=== PATIENT | male | born 1985 | race Caucasian/White ===

== ENCOUNTER 2019-03-24 19:05 | Emergency (ER) | payer OTHER ==
[~2019-03-24] VITALS: Ht 177.8 cm; Wt 86.4 kg
[~2019-03-24 19:05] MED LIST: ADVI200C5 PO; AZAT50TA2 PO; CIPR-249 PO; CIPR500T89 PO; FLAG500T PO; HYOSPOW SL; IBUP-1114 PO; MAPA500T17 PO; MOTR200T44 PO; NORC1TAB7 PO; PENT500C4 PO; PRED-351 PO; PRED20TA PO; PRED5TA PO; SIME40TA PO; TYLE325T5 PO; ZOFR4SOL PO
[2019-03-24] MEDS ORDERED: MORPHINE 2 MG/ML 1ML VIAL (J2270) IV ONE (19:45)
[2019-03-24] MEDS ORDERED: ONDANSETRON 4MG/2ML VIAL (J2405) IV ONE (19:45)
[2019-03-24] MEDS ORDERED: pamprin PO (19:49)
[2019-03-24 20:13] LABS: BASO # 0.1 10^3/uL (0.0-0.2); BASO % 0.3 % (0.0-1.0); EOS # 0.2 10^3/uL (0.0-0.5); EOS % 1.1 % (0.0-3.0); HEMATOCRIT 45.1 % (42.0-52.0); HEMOGLOBIN 14.8 g/dl (13.5-17.5); LYMPH % 13.3 % (24.0-44.0); MEAN CORPUSCULAR HEMOGLOBIN 28.5 pg (27.0-33.0); MEAN CORPUSCULAR HGB CONC 32.8 g/dl (32.0-36.5); MEAN CORPUSCULAR VOLUME 86.9 fl (80.0-96.0); MONO # 1.2 10^3/uL (0.0-0.8); MONO % 7.5 % (0.0-5.0); NEUTROPHILS # 11.8 10^3/uL (1.5-8.5); NEUTROPHILS % 77.4 % (36.0-66.0); PLATELET COUNT, AUTOMATED 330 10^3/uL (150-450); RED BLOOD COUNT 5.19 10^6/uL (4.30-6.10); WHITE BLOOD COUNT 15.2 10^3/uL (4.0-10.0)
[2019-03-24 20:39] LABS: ALBUMIN 3.5 GM/DL (3.2-5.2); ALT/SGPT 24 U/L (12-78); BILIRUBIN,DIRECT < 0.1 MG/DL (0.0-0.2); BILIRUBIN,TOTAL 0.3 MG/DL (0.2-1.0); BLOOD UREA NITROGEN 9 MG/DL (7-18); CALCIUM LEVEL 9.3 MG/DL (8.5-10.1); CARBON DIOXIDE LEVEL 30 MEQ/L (21-32); CHLORIDE LEVEL 105 MEQ/L (98-107); CREATININE FOR GFR 0.88 MG/DL (0.70-1.30); GLOMERULAR FILTRATION RATE > 60.0 (>60); GLUCOSE, FASTING 88 MG/DL (70-100); LIPASE 117 U/L (73-393); POTASSIUM SERUM 4.2 MEQ/L (3.5-5.1); SODIUM LEVEL 138 MEQ/L (136-145); TOTAL PROTEIN 7.6 GM/DL (6.4-8.2)
[2019-03-24] MEDS ORDERED: ISOVUE-370 76% 100ML VIAL (Q9967) As Ordered ONE (20:56)
[2019-03-24] MEDS ORDERED: PRED20TA PO (22:31)
[2019-03-24 22:32] VITALS: BP 126/74
--- NOTE | 2019-03-24 22:39 | REPVR ---
PROCEDURE INFORMATION: Exam: CT Abdomen And Pelvis With Contrast Exam date and time: 03/24/2019 8:59 PM Clinical history: 33 years old, male; Abdominal pain; Generalized; Additional info: Abd pain, PT dx with crohns TECHNIQUE: Imaging protocol: Computed tomography of the abdomen and pelvis with intravenous contrast. Radiation optimization: All CT scans at this facility use at least one of these dose optimization techniques: automated exposure control; mA and/or kV adjustment per patient size (includes targeted exams where dose is matched to clinical indication); or iterative reconstruction. Contrast material: ISOVUE 370; Contrast volume: 100 ml; Contrast route: IV; COMPARISON: CT ABD PELVIS W/O FOL BY WIT 06/05/2015 4:37 PM FINDINGS: Liver: Normal. No mass. Gallbladder and bile ducts: Normal. No calcified stones. No ductal dilation. Pancreas: Normal. No ductal dilation. Spleen: Normal. No splenomegaly. Adrenals: Normal. No mass. Kidneys and ureters: Normal. No hydronephrosis. Stomach and bowel: Moderate amount of fluid is present throughout much of the small bowel with mucosal enhancement and discontinuous areas of bowel wall thickening. Small bowel within the hernia appears mildly thickwalled. Small bowel proximal and distal to the hernia is dilated. Wall thickening is noted in portions of the distal ileum. Changes from previous distal ileal resection are noted. Mild fluid in the cecum. Remainder of the colon is decompressed without other inflammatory changes. Appendix: There has been prior appendectomy. Intraperitoneal space: No pneumoperitoneum or abscess. Vasculature: Unremarkable. No abdominal aortic aneurysm. Lymph nodes: Scattered mildly enlarged mesenteric lymph nodes are noted. Bilateral inguinal adenopathy. Bladder: Unremarkable as visualized. Reproductive: Unremarkable as visualized. Bones/joints: Unremarkable. No acute fracture. Soft tissues: There is a new periumbilical hernia containing a short segment of small bowel. IMPRESSION: 1. Periumbilical hernia containing a short segment of thickwalled small bowel. The hernia does not appear to be obstructive as small bowel proximal and distal to the hernia appears mildly distended with fluid. 2. Discontinuous areas of wall thickening with mucosal enhancement and generalized intraluminal fluid in the mid and distal small bowel suggesting a Crohn's flare. No perforation or abscess. 3. Bilateral inguinal adenopathy. Electronically signed by: True Gonzalez On 03/24/2019 22:38:40 PM
--- NOTE | 2019-03-27 10:59 | ED PDOC ---
Post-Departure Follow-Up dr giron faxed formal report of ct abd/p for fu Elmer Ríos MD Mar 27, 2019 10:59
== END 2019-03-24 22:38 | disposition left against medical advice (07) ==
LOC: M ED 19:05
DX: K50.90 Crohn's disease, unspecified, without complications (principal); K42.9 Umbilical hernia without obstruction or gangrene; F17.210 Nicotine dependence, cigarettes, uncomplicated; Z90.49 Acquired absence of other specified parts of digestive tract; Z98.890 Other specified postprocedural states
CPT/HCPCS: 74177; 80048; 80076; 81001; 83605; 83690; 85025; 96374; 96375; 99284; J2270; J2405; Q9967

== ENCOUNTER 2019-05-24 17:57 | Emergency (ER) | payer OTHER ==
[~2019-05-24] VITALS: Ht 177.8 cm; Wt 79.1 kg
[~2019-05-24 17:57] MED LIST changes: +pamprin PO
[2019-05-24] MEDS ORDERED: NS 1,000 ML IV ONE (18:45)
[2019-05-24 19:47] LABS: BASO # 0.1 10^3/uL (0.0-0.2); BASO % 0.4 % (0.0-1.0); EOS # 0.1 10^3/uL (0.0-0.5); EOS % 0.6 % (0.0-3.0); HEMATOCRIT 47.1 % (42.0-52.0); LYMPH # 2.3 10^3/uL (1.5-5.0); LYMPH % 16.7 % (24.0-44.0); MEAN CORPUSCULAR HEMOGLOBIN 27.8 pg (27.0-33.0); MEAN CORPUSCULAR HGB CONC 31.8 g/dl (32.0-36.5); MEAN CORPUSCULAR VOLUME 87.4 fl (80.0-96.0); MONO # 0.9 10^3/uL (0.0-0.8); MONO % 6.7 % (0.0-5.0); NEUTROPHILS # 10.5 10^3/uL (1.5-8.5); NEUTROPHILS % 75.2 % (36.0-66.0); PLATELET COUNT, AUTOMATED 364 10^3/uL (150-450); RED BLOOD COUNT 5.39 10^6/uL (4.30-6.10)
[2019-05-24] MEDS: GASTROGRAFIN SOLUTION 30ML PO SCH ×2 (19:56→20:16)
[2019-05-24 20:24] LABS: ALBUMIN 3.5 GM/DL (3.2-5.2); ALT/SGPT 31 U/L (12-78); BILIRUBIN,DIRECT 0.1 MG/DL (0.0-0.2); BILIRUBIN,TOTAL 0.3 MG/DL (0.2-1.0); BLOOD UREA NITROGEN 8 MG/DL (7-18); CALCIUM LEVEL 9.7 MG/DL (8.5-10.1); CARBON DIOXIDE LEVEL 28 MEQ/L (21-32); CHLORIDE LEVEL 103 MEQ/L (98-107); CREATININE FOR GFR 1.01 MG/DL (0.70-1.30); GLOMERULAR FILTRATION RATE > 60.0 (>60); GLUCOSE, FASTING 87 MG/DL (70-100); LIPASE 101 U/L (73-393); POTASSIUM SERUM 4.7 MEQ/L (3.5-5.1); SODIUM LEVEL 138 MEQ/L (136-145); TOTAL PROTEIN 8.1 GM/DL (6.4-8.2)
[2019-05-24 20:43] LABS: C REACTIVE PROTEIN QUANTITATIV 4.92 MG/DL (0.00-0.30)
[2019-05-24] MEDS ORDERED: ISOVUE-370 76% 100ML VIAL (Q9967) As Ordered ONE (20:53)
[2019-05-24 21:15] LABS: ERYTHROCYTE SEDIMENTATION RATE 18 mm/hr (0-15)
--- NOTE | 2019-05-24 22:10 | REPVR ---
PROCEDURE INFORMATION: Exam: CT Abdomen And Pelvis With Contrast Exam date and time: 05/24/2019 9:07 PM Age: 33 years old Clinical indication: Abdominal pain; Localized; Right lower quadrant (rlq); Additional info: Hernia, rlq pain, llq ttp h/o crohns TECHNIQUE: Imaging protocol: Computed tomography of the abdomen and pelvis with intravenous contrast. Radiation optimization: All CT scans at this facility use at least one of these dose optimization techniques: automated exposure control; mA and/or kV adjustment per patient size (includes targeted exams where dose is matched to clinical indication); or iterative reconstruction. Contrast material: ISOVUE 370; Contrast volume: 100 ml; Contrast route: IV; Other contrast: Route: Oral, Material: GASTROGRAFIN; COMPARISON: CT ABD/PEL W/IV CONTRAST ONLY 03/24/2019 8:57 PM FINDINGS: Lungs: Minimal bilateral lower lobe dependent atelectasis. Liver: Normal. No mass. Gallbladder and bile ducts: Normal. No calcified stones. No ductal dilation. Pancreas: Normal. No ductal dilation. Spleen: Normal. No splenomegaly. Adrenals: Normal. No mass. Kidneys and ureters: Small nonobstructing bilateral calculi. Stomach and bowel: Partial proximal colonic and small bowel resection with ileocolic anastomosis in the mid ascending colon. The remaining distal small bowel demonstrates wall thickening and slight surrounding induration consistent with distal ileitis. Resolution of small bowel obstruction or distention since the prior study. Appendix: No evidence of appendicitis. Intraperitoneal space: Unremarkable. No free air. No significant fluid collection. Vasculature: Unremarkable. No abdominal aortic aneurysm. Lymph nodes: Borderline central mesenteric nodes and mildly prominent right lower quadrant mesenteric nodes which are likely reactive and similar to the prior study. Mild bilateral inguinal adenopathy with nodes measuring up to 3.2 x 2.4 x 1.4 cm on the left and slightly smaller nodes on the right. Bladder: Unremarkable as visualized. Reproductive: Unremarkable as visualized. Bones/joints: Unremarkable. No acute fracture. Soft tissues: Small right periumbilical hernia containing a short segment of small bowel with no strangulation or obstruction. IMPRESSION: 1. Resolution of small bowel obstructive changes since 03/24/2019. 2. Status post proximal colectomy and small bowel resection with ileocolic anastomosis which is similar. The remaining distal ileum demonstrates wall thickening and surrounding induration consistent with distal ileitis in Crohn's disease which is similar to slightly increased since the prior study. There is borderline distention of a short segment of small bowel just proximal to the ileitis. 3. Right periumbilical hernia containing a short segment of small bowel with no strangulation or obstruction and is similar. 4. Small nonobstructing bilateral renal calculi. 5. Borderline central mesenteric nodes with mildly enlarged right lower quadrant mesenteric nodes which are similar to the prior study and likely reactive. There is mild bilateral inguinal adenopathy which is similar. Electronically signed by: Leon Negron On 05/24/2019 22:10:20 PM
[2019-05-24] MEDS ORDERED: UCER9TAB PO (23:51)
[2019-05-25 00:04] VITALS: BP 133/69
--- NOTE | 2019-05-25 08:52 | ED PDOC ---
Post-Departure Follow-Up [facility], dr haq, dr fernandez faxed formal report of ct abd/p for fu Elmer Hein MD May 25, 2019 08:52
== END 2019-05-25 00:05 | disposition home or self-care (01) ==
LOC: M ED 17:57
DX: K50.90 Crohn's disease, unspecified, without complications (principal); N20.1 Calculus of ureter; K42.9 Umbilical hernia without obstruction or gangrene; I88.0 Nonspecific mesenteric lymphadenitis; Z90.49 Acquired absence of other specified parts of digestive tract; F17.200 Nicotine dependence, unspecified, uncomplicated; N20.0 Calculus of kidney
CPT/HCPCS: 36415; 74177; 80048; 80076; 81001; 83690; 85025; 85652; 86140; 96360; 99284; Q9963; Q9967

== ENCOUNTER → 2019-06-19 | Outpatient (CLI) | payer OTHER ==
[~2019-06-19] MED LIST changes: +UCER9TAB PO
[2019-06-19 13:31] LABS: BASO # 0.1 10^3/uL (0.0-0.2); BASO % 0.3 % (0.0-1.0); EOS % 0.1 % (0.0-3.0); HEMATOCRIT 45.7 % (42.0-52.0); HEMOGLOBIN 14.5 g/dl (13.5-17.5); LYMPH # 2.3 10^3/uL (1.5-5.0); LYMPH % 12.9 % (24.0-44.0); MEAN CORPUSCULAR HEMOGLOBIN 27.5 pg (27.0-33.0); MEAN CORPUSCULAR HGB CONC 31.7 g/dl (32.0-36.5); MEAN CORPUSCULAR VOLUME 86.7 fl (80.0-96.0); MONO # 0.7 10^3/uL (0.0-0.8); MONO % 3.7 % (0.0-5.0); NEUTROPHILS # 14.6 10^3/uL (1.5-8.5); NEUTROPHILS % 82.4 % (36.0-66.0); PLATELET COUNT, AUTOMATED 363 10^3/uL (150-450); RED BLOOD COUNT 5.27 10^6/uL (4.30-6.10); WHITE BLOOD COUNT 17.7 10^3/uL (4.0-10.0)
[2019-06-19 14:01] LABS: ALBUMIN 3.4 GM/DL (3.2-5.2); ALT/SGPT 31 U/L (12-78); BILIRUBIN,DIRECT 0.1 MG/DL (0.0-0.2); BILIRUBIN,TOTAL 0.2 MG/DL (0.2-1.0); BLOOD UREA NITROGEN 12 MG/DL (7-18); C REACTIVE PROTEIN QUANTITATIV 0.36 MG/DL (0.00-0.30); CREATININE FOR GFR 0.76 MG/DL (0.70-1.30); ERYTHROCYTE SEDIMENTATION RATE 16 mm/hr (0-15); GLOMERULAR FILTRATION RATE > 60.0 (>60); TOTAL PROTEIN 7.3 GM/DL (6.4-8.2)
[2019-06-20 10:30] LABS: HEPATITIS B SURFACE ANTIBODY POSITIVE (POSITIVE)
[2019-06-20 10:41] LABS: HEPATITIS B SURFACE ANTIGEN NEGATIVE (NEGATIVE)
[2019-06-20 11:10] LABS: HEPATITIS C VIRUS ABY INDEX < 0.0 INDEX (<0.8)
== END ==
LOC: M LAB 12:25
PROVIDERS: ATTEND Internal Medicine Gastroenterology
DX: K50.00 Crohn's disease of small intestine without complications (principal)

== ENCOUNTER 2019-07-09 07:48 | Day surgery (SDC) | payer OTHER ==
[~2019-07-09] VITALS: Ht 172.7 cm; Wt 81.2 kg
[~2019-07-09 07:48] MED LIST changes: +METR-265 PO; +NS 1,000 ML IV ONE; +PRED10PA2 PO
[2019-07-09] MEDS ORDERED: LIDOCAINE 2% INJ 100 MG/5 ML SDV (FOR ANES.) As Ordered ONE (08:36)
[2019-07-09] MEDS ORDERED: propofoL 200 MG/20 ML VIAL As Ordered ONE (08:36)
[2019-07-09 09:15] VITALS: BP 110/62
--- NOTE | 2019-07-09 09:37 | ROOR ---
Patient Name: David Taylor Procedure Date: 07/09/2019 8:28 AM Date of : 1985 Age: 33 Room: [facility] Gender: Male Note Status: Finalized Procedure: Colonoscopy Indications: Disease activity assessment of Crohn's disease of the small bowel and colon Providers: Robbie Hung MD Referring MD: Herbert Goodrich Md Requesting Provider: Medicines: Monitored Anesthesia Care Complications: No immediate complications. Procedure: Pre-Anesthesia Assessment: - Prior to the procedure, a History and Physical was performed, and patient medications and allergies were reviewed. The patient is competent. The risks and benefits of the procedure and the sedation options and risks were discussed with the patient. All questions were answered and informed consent was obtained. Patient identification and proposed procedure were verified by the physician, the nurse and the anesthesiologist in the procedure room. Mental Status Examination: alert and oriented. Airway Examination: normal oropharyngeal airway and neck mobility. Respiratory Examination: clear to auscultation. Prophylactic Antibiotics: The patient does not require prophylactic antibiotics. Prior Anticoagulants: The patient has taken no previous anticoagulant or antiplatelet agents. ASA Grade Assessment: II - A patient with mild systemic disease. After reviewing the risks and benefits, the patient was deemed in satisfactory condition to undergo the procedure. The anesthesia plan was to use monitored anesthesia care (MAC). Immediately prior to administration of medications, the patient was re-assessed for adequacy to receive sedatives. The heart rate, respiratory rate, oxygen saturations, blood pressure, adequacy of pulmonary ventilation, and response to care were monitored throughout the procedure. The physical status of the patient was re-assessed after the procedure. The Colonoscope was introduced through the anus and advanced to the ileocolonic anastomosis. The colonoscopy was performed without difficulty. The patient tolerated the procedure well. The quality of the bowel preparation was good. The terminal ileum and the rectum were photographed. Scope insertion time was 3 minutes. Scope withdrawal time was 9 minutes. The total duration of the procedure was 12 minutes. Findings: The perianal exam findings include a perianal rash and perianal abscess. The joyce-terminal ileum contained multiple ten mm ulcers. No bleeding was present. Biopsies were taken with a cold forceps for histology. Verification of patient identification for the specimen was done by the physician and nurse using the patient's name, date and medical record number. Estimated blood loss was minimal. There was evidence of a prior functional end-to-end ileo-colonic anastomosis in the ascending colon. This was stenosed ( regular colonoscopy could not pass) and was characterized by congestion, inflammation and ulceration. The anastomosis could not be traversed. Patchy moderate inflammation characterized by altered vascularity, erosions, erythema and granularity was found from rectum to ascending colon. Biopsies were taken with a cold forceps for histology. Non-bleeding external and internal hemorrhoids were found during retroflexion. The hemorrhoids were small. No additional abnormalities were found on retroflexion. Impression: - Perianal rash and perianal abscess found on perianal exam. - Multiple ulcers in the joyce-terminal ileum. Biopsied. - Stenosed ( regular colonoscopy could not pass) functional end-to-end ileo-colonic anastomosis, characterized by congestion, inflammation and ulceration. - Patchy moderate inflammation was found from rectum to ascending colon secondary to colitis. Biopsied. - Non-bleeding external and internal hemorrhoids. No additional abnormalities were found on retroflexion. Recommendation: - Patient has a contact number available for emergencies. The signs and symptoms of potential delayed complications were discussed with the patient. Return to normal activities tomorrow. Written discharge instructions were provided to the patient. - High fiber diet. - Continue present medications. - Taper prednisone. - Cipro (ciprofloxacin) 500 mg PO BID for 10 days. - Flagyl (metronidazole) 500 mg PO TID for 2 weeks. - Refer to a surgeon as previously scheduled to reassess for abscess drainage. - Return to GI clinic in [facility] (address [address], [address], [place], [facility]) in 4 -- 6 weeks. Please call GI clinic @ [phone] for apppointment date and time. - Return to primary care physician. Robbie Hung MD Robbie Hung MD 07/09/2019 9:36:56 AM Electronically signed by Robbie Hung MD Number of Addenda: 0 Note Initiated On: 07/09/2019 8:28 AM Estimated Blood Loss: Estimated blood loss was minimal.
== END 2019-07-09 09:47 | disposition home or self-care (01) ==
LOC: M OPP 07:48
PROVIDERS: ATTEND Internal Medicine Gastroenterology
DX: K50.80 Crohn's disease of both small and large intestine without complications (principal); R21 Rash and other nonspecific skin eruption; K63.3 Ulcer of intestine; K61.0 Anal abscess; Z98.0 Intestinal bypass and anastomosis status; K52.9 Noninfective gastroenteritis and colitis, unspecified; F17.218 Nicotine dependence, cigarettes, with other nicotine-induced disorders; Z88.8 Allergy status to other drugs, medicaments and biological substances; Z79.899 Other long term (current) drug therapy; Z79.52 Long term (current) use of systemic steroids; G43.909 Migraine, unspecified, not intractable, without status migrainosus

== ENCOUNTER 2019-07-16 07:47 | Outpatient (CLI) | payer OTHER ==
[~2019-07-16] VITALS: Ht 172.7 cm; Wt 81.2 kg
[~2019-07-16 07:47] MED LIST changes: -NS 1,000 ML IV ONE
[2019-07-16] MEDS ORDERED: VEDOLIZUMAB 300 MG in NS 250 ML IV ONE (08:00)
[2019-07-16] MEDS ORDERED: CIPR5SUS PO (08:07)
[2019-07-16 08:16] VITALS: BP 113/76
[2019-07-16 09:00] VITALS: BP 117/70
[2019-07-16 09:22] VITALS: BP 117/74
== END 2019-07-16 09:20 | disposition home or self-care (01) ==
LOC: M INFU 07:47
PROVIDERS: ATTEND Internal Medicine Gastroenterology
DX: K50.90 Crohn's disease, unspecified, without complications (principal); Z88.8 Allergy status to other drugs, medicaments and biological substances
CPT/HCPCS: 96365; J3380

== ENCOUNTER 2019-07-30 07:57 | Outpatient (CLI) | payer OTHER ==
[~2019-07-30] VITALS: Ht 172.7 cm; Wt 81.2 kg
[~2019-07-30 07:57] MED LIST changes: +CIPR5SUS PO
[2019-07-30 08:23] VITALS: BP 124/74
[2019-07-30] MEDS ORDERED: VEDOLIZUMAB 300 MG in NS 250 ML IV ONE (09:00)
[2019-07-30 09:45] VITALS: BP 116/65
== END 2019-07-30 09:45 | disposition home or self-care (01) ==
LOC: M INFU 07:57
PROVIDERS: ATTEND Internal Medicine Gastroenterology
DX: K50.90 Crohn's disease, unspecified, without complications (principal); Z88.8 Allergy status to other drugs, medicaments and biological substances
CPT/HCPCS: 96365; J3380

== ENCOUNTER 2019-08-27 08:33 | Outpatient (CLI) | payer OTHER ==
[~2019-08-27] VITALS: Ht 172.7 cm; Wt 81.2 kg
[2019-08-27 08:40] VITALS: BP 113/75
[2019-08-27] MEDS ORDERED: VEDOLIZUMAB 300 MG in NS 250 ML IV ONE (09:00)
[2019-08-27 10:00] VITALS: BP 107/60
== END 2019-08-27 10:00 | disposition home or self-care (01) ==
LOC: M INFU 08:33
PROVIDERS: ATTEND Internal Medicine Gastroenterology
DX: K50.90 Crohn's disease, unspecified, without complications (principal); Z88.8 Allergy status to other drugs, medicaments and biological substances
CPT/HCPCS: 96365; 96366; J3380

== ENCOUNTER → 2019-09-20 | Outpatient (CLI) | payer OTHER ==
[2019-09-20 12:47] LABS: BASO # 0.1 10^3/uL (0.0-0.2); BASO % 0.5 % (0.0-1.0); EOS # 0.2 10^3/uL (0.0-0.5); EOS % 2.1 % (0.0-3.0); HEMATOCRIT 50.7 % (42.0-52.0); HEMOGLOBIN 16.3 g/dl (13.5-17.5); LYMPH # 2.7 10^3/uL (1.5-5.0); LYMPH % 28.7 % (24.0-44.0); MEAN CORPUSCULAR HEMOGLOBIN 28.5 pg (27.0-33.0); MEAN CORPUSCULAR HGB CONC 32.1 g/dl (32.0-36.5); MEAN CORPUSCULAR VOLUME 88.6 fl (80.0-96.0); MONO # 0.8 10^3/uL (0.0-0.8); NEUTROPHILS # 5.7 10^3/uL (1.5-8.5); NEUTROPHILS % 60.4 % (36.0-66.0); PLATELET COUNT, AUTOMATED 320 10^3/uL (150-450); RED BLOOD COUNT 5.72 10^6/uL (4.30-6.10); WHITE BLOOD COUNT 9.5 10^3/uL (4.0-10.0)
[2019-09-20 13:23] LABS: ALBUMIN 3.5 GM/DL (3.2-5.2); BILIRUBIN,DIRECT 0.1 MG/DL (0.0-0.2); BILIRUBIN,TOTAL 0.5 MG/DL (0.2-1.0); C REACTIVE PROTEIN QUANTITATIV 0.37 MG/DL (0.00-0.30); TOTAL PROTEIN 7.4 GM/DL (6.4-8.2)
[2019-09-20 13:51] LABS: ERYTHROCYTE SEDIMENTATION RATE 4 mm/hr (0-15)
== END ==
LOC: M LAB 12:24
PROVIDERS: ATTEND Internal Medicine Gastroenterology
DX: K50.913 Crohn's disease, unspecified, with fistula (principal); K63.3 Ulcer of intestine

== ENCOUNTER 2019-10-23 08:27 | Outpatient (CLI) | payer OTHER ==
[~2019-10-23] VITALS: Ht 172.7 cm; Wt 81.2 kg
[2019-10-23 08:38] VITALS: BP 120/75
[2019-10-23] MEDS ORDERED: VEDOLIZUMAB 300 MG in NS 250 ML IV ONE (08:45)
[2019-10-23 09:35] VITALS: BP 107/60
== END 2019-10-23 09:35 | disposition home or self-care (01) ==
LOC: M INFU 08:27
PROVIDERS: ATTEND Internal Medicine Gastroenterology
DX: K50.90 Crohn's disease, unspecified, without complications (principal)
CPT/HCPCS: 96365; J3380

== ENCOUNTER 2019-12-17 08:41 | Outpatient (CLI) | payer OTHER ==
[~2019-12-17] VITALS: Ht 172.7 cm; Wt 81.2 kg
[2019-12-17 08:45] VITALS: BP 117/61
[2019-12-17] MEDS ORDERED: ENTY1INJ IV (08:58)
[2019-12-17] MEDS ORDERED: VEDOLIZUMAB 300 MG in NS 250 ML IV ONE (09:00)
[2019-12-17 09:14] VITALS: BP 117/61
[2019-12-17 09:50] VITALS: BP 106/60
[2019-12-17 09:58] VITALS: BP 108/60
== END 2019-12-17 10:00 | disposition home or self-care (01) ==
LOC: M INFU 08:41
PROVIDERS: ATTEND Internal Medicine Gastroenterology
DX: K50.90 Crohn's disease, unspecified, without complications (principal)
CPT/HCPCS: 96365; J3380

== ENCOUNTER 2020-02-11 08:47 | Outpatient (CLI) | payer OTHER ==
[~2020-02-11] VITALS: Ht 172.7 cm; Wt 81.2 kg
[~2020-02-11 08:47] MED LIST changes: +ENTY1INJ IV; +VEDOLIZUMAB 300 MG in NS 250 ML IV ONE
[2020-02-11 08:55] VITALS: BP 117/75
[2020-02-11 10:00] VITALS: BP 112/71
== END 2020-02-11 10:00 | disposition home or self-care (01) ==
LOC: M INFU 08:47
PROVIDERS: ATTEND Internal Medicine Gastroenterology
DX: K50.90 Crohn's disease, unspecified, without complications (principal)
CPT/HCPCS: 96365; J3380

== ENCOUNTER 2020-04-07 08:37 | Outpatient (CLI) | payer OTHER ==
[~2020-04-07] VITALS: Ht 172.7 cm; Wt 81.2 kg
[2020-04-07 08:51] VITALS: BP 136/84
[2020-04-07 09:44] VITALS: BP 135/73
== END 2020-04-07 09:45 | disposition home or self-care (01) ==
LOC: M INFU 08:37
PROVIDERS: ATTEND Internal Medicine Gastroenterology
DX: K50.90 Crohn's disease, unspecified, without complications (principal); Z88.8 Allergy status to other drugs, medicaments and biological substances
CPT/HCPCS: 96365; J3380

== ENCOUNTER 2020-06-02 08:32 | Outpatient (CLI) | payer OTHER ==
[~2020-06-02] VITALS: Ht 172.7 cm; Wt 81.2 kg
[2020-06-02 08:44] VITALS: BP 120/71
[2020-06-02 10:35] VITALS: BP 101/66
== END 2020-06-02 10:35 | disposition home or self-care (01) ==
LOC: M INFU 08:32
PROVIDERS: ATTEND Internal Medicine Gastroenterology
DX: K50.90 Crohn's disease, unspecified, without complications (principal); Z88.8 Allergy status to other drugs, medicaments and biological substances
CPT/HCPCS: 96365; J3380

== ENCOUNTER 2020-07-28 08:25 | Outpatient (CLI) | payer OTHER ==
[~2020-07-28] VITALS: Ht 172.7 cm; Wt 81.2 kg
[~2020-07-28 08:25] MED LIST changes: -VEDOLIZUMAB 300 MG in NS 250 ML IV ONE
[2020-07-28 08:30] VITALS: BP 128/74
[2020-07-28] MEDS ORDERED: VEDOLIZUMAB 300 MG in NS 250 ML IV ONE (08:30)
[2020-07-28 09:50] VITALS: BP 126/63
== END 2020-07-28 09:50 | disposition home or self-care (01) ==
LOC: M INFU 08:25
PROVIDERS: ATTEND Internal Medicine Gastroenterology
DX: K50.90 Crohn's disease, unspecified, without complications (principal); Z88.8 Allergy status to other drugs, medicaments and biological substances
CPT/HCPCS: 96365; J3380

== ENCOUNTER 2020-09-22 08:22 | Outpatient (CLI) | payer OTHER ==
[~2020-09-22] VITALS: Ht 172.7 cm; Wt 81.2 kg
[2020-09-22] MEDS ORDERED: VEDOLIZUMAB 300 MG in NS 250 ML IV ONE (08:30)
[2020-09-22 09:11] VITALS: BP 137/81
[2020-09-22 09:52] VITALS: BP 119/76
== END 2020-09-22 10:00 | disposition home or self-care (01) ==
LOC: M INFU 08:22
PROVIDERS: ATTEND Internal Medicine Gastroenterology
DX: K50.90 Crohn's disease, unspecified, without complications (principal)
CPT/HCPCS: 96365; J3380

== ENCOUNTER → 2020-10-01 | Outpatient (CLI) | payer OTHER | LOC: M LABSMTC 09:52 | PROVIDERS: ATTEND Anesthesiology | DX: Z01.812 Encounter for preprocedural laboratory examination (principal); Z20.822 Contact with and (suspected) exposure to COVID-19 ==

== ENCOUNTER 2020-10-06 07:46 | Day surgery (SDC) | payer OTHER ==
[~2020-10-06] VITALS: Ht 177.8 cm; Wt 89.3 kg
[~2020-10-06 07:46] MED LIST changes: +NS 1,000 ML IV ONE
[2020-10-06] MEDS ORDERED: LIDOCAINE 2% 100MG/5ML SDV (FOR ANES.) As Ordered ONE (09:07)
[2020-10-06] MEDS ORDERED: propofoL 200 MG/20 ML VIAL As Ordered ONE (09:07)
--- NOTE | 2020-10-06 09:42 | ROOR ---
Patient Name: David Taylor Procedure Date: 10/06/2020 8:58 AM Date of : 1985 Age: 34 Room: [facility] Gender: Male Note Status: Finalized Procedure: Colonoscopy Indications: Disease activity assessment of Crohn's disease of the small bowel and colon, Assess therapeutic response to therapy of Crohn's disease of the small bowel and colon Providers: Robbie Hung MD Referring MD: Herbert Goodrich MD Requesting Provider: Medicines: Monitored Anesthesia Care Complications: No immediate complications. Procedure: Pre-Anesthesia Assessment: - Prior to the procedure, a History and Physical was performed, and patient medications and allergies were reviewed. The patient is competent. The risks and benefits of the procedure and the sedation options and risks were discussed with the patient. All questions were answered and informed consent was obtained. Patient identification and proposed procedure were verified by the physician, the nurse and the anesthesiologist in the procedure room. Mental Status Examination: alert and oriented. Airway Examination: normal oropharyngeal airway and neck mobility. Respiratory Examination: clear to auscultation. CV Examination: normal. Prophylactic Antibiotics: The patient does not require prophylactic antibiotics. Prior Anticoagulants: The patient has taken no previous anticoagulant or antiplatelet agents. ASA Grade Assessment: II - A patient with mild systemic disease. After reviewing the risks and benefits, the patient was deemed in satisfactory condition to undergo the procedure. The anesthesia plan was to use monitored anesthesia care (MAC). Immediately prior to administration of medications, the patient was re-assessed for adequacy to receive sedatives. The heart rate, respiratory rate, oxygen saturations, blood pressure, adequacy of pulmonary ventilation, and response to care were monitored throughout the procedure. The physical status of the patient was re-assessed after the procedure. The Colonoscope was introduced through the anus and advanced to 15 cm into the ileum. The colonoscopy was performed without difficulty. The patient tolerated the procedure well. The quality of the bowel preparation was good. The terminal ileum and the rectum were photographed. Scope insertion time was 2 minutes. Scope withdrawal time was 8 minutes. The total duration of the procedure was 10 minutes. Findings: -- Noted multiple healing abscesses in perianal area. One abscess in the left buttock is noted to express pus on pressure. No fistulous tract identified in the rectum. Scattered inflammation, graded as Rutgeerts Score i1 (five or fewer aphthous lesions) and characterized by congestion (edema) and erythema was found at 15 cm from the Ileocolonic Anastomosis. Biopsies were taken with a cold forceps for histology. Verification of patient identification for the specimen was done by the physician and nurse using the patient's name, date and medical record number. Estimated blood loss was minimal. There was evidence of a prior functional end-to-end ileo-colonic anastomosis in the ascending colon. This was patent and was characterized by healthy appearing mucosa. The anastomosis was traversed. A healed ulcer was found in the recto-sigmoid colon and in the ascending colon. The scar tissue was healthy in appearance. Normal mucosa was found in the entire colon. Biopsies were taken with a cold forceps for histology. Two sessile polyps were found in the ascending colon. The polyps were 3 to 4 mm in size. These polyps were removed with a cold biopsy forceps. Resection and retrieval were complete. Non-bleeding external and internal hemorrhoids were found during retroflexion. The hemorrhoids were medium-sized. Impression: - Crohn's disease with ileitis. Biopsied. - Patent functional end-to-end ileo-colonic anastomosis, characterized by healthy appearing mucosa. - Scar in the recto-sigmoid colon and in the ascending colon. - Normal mucosa in the entire examined colon. Biopsied. - Two 3 to 4 mm polyps in the ascending colon, removed with a cold biopsy forceps. Resected and retrieved. - Non-bleeding external and internal hemorrhoids. Recommendation: - Patient has a contact number available for emergencies. The signs and symptoms of potential delayed complications were discussed with the patient. Return to normal activities tomorrow. Written discharge instructions were provided to the patient. - High fiber diet. - Continue present medications. - Use Questran at 1 scoop (4 grams) PO daily. - Colace capsule(s) orally 100 mg BID. - Flagyl (metronidazole) 500 mg PO TID for 5 days. - Telephone GI clinic for pathology results in 2 weeks. - Return to GI clinic in [facility] (address [address], [address], [place], [facility]) in 4 -- 6 weeks. Please call GI clinic @ [phone] for apppointment date and time. - Return to primary care physician. Procedure Code(s): --- Professional --- 46020, Colonoscopy, flexible; with biopsy, single or multiple Diagnosis Code(s): --- Professional --- K50.00, Crohn's disease of small intestine without complications Z98.0, Intestinal bypass and anastomosis status K63.89, Other specified diseases of intestine K64.8, Other hemorrhoids K63.5, Polyp of colon K50.80, Crohn's disease of both small and large intestine without complications CPT copyright 2019 [employer]. All rights reserved. The codes documented in this report are preliminary and upon dance artist review may be revised to meet current compliance requirements. Robbie Hung MD Robbie Hung MD 10/06/2020 9:42:00 AM Electronically signed by Robbie Hung MD Number of Addenda: 0 Note Initiated On: 10/06/2020 8:58 AM Estimated Blood Loss: Estimated blood loss was minimal.
[2020-10-06 09:52] VITALS: BP 114/62
== END 2020-10-06 09:55 | disposition home or self-care (01) ==
LOC: M OPP 07:46
PROVIDERS: ATTEND Internal Medicine Gastroenterology
DX: K63.89 Other specified diseases of intestine (principal); Z98.0 Intestinal bypass and anastomosis status; K63.5 Polyp of colon; K64.8 Other hemorrhoids; K50.80 Crohn's disease of both small and large intestine without complications; Z79.899 Other long term (current) drug therapy; Z88.8 Allergy status to other drugs, medicaments and biological substances; F17.210 Nicotine dependence, cigarettes, uncomplicated

== ENCOUNTER 2020-11-17 08:44 | Outpatient (CLI) | payer OTHER ==
[~2020-11-17] VITALS: Ht 172.7 cm; Wt 81.2 kg
[~2020-11-17 08:44] MED LIST changes: -NS 1,000 ML IV ONE; +VEDOLIZUMAB 300 MG in NS 250 ML IV ONE
[2020-11-17 08:48] VITALS: BP 125/86
[2020-11-17 09:45] VITALS: BP 118/70
== END 2020-11-17 09:50 | disposition home or self-care (01) ==
LOC: M INFU 08:44
PROVIDERS: ATTEND Internal Medicine Gastroenterology
DX: K50.90 Crohn's disease, unspecified, without complications (principal)
CPT/HCPCS: 96365; J3380

== ENCOUNTER 2021-01-12 09:11 | Outpatient (CLI) | payer OTHER ==
[~2021-01-12] VITALS: Ht 175.3 cm; Wt 86.3 kg
[2021-01-12 09:15] VITALS: BP 139/88
[2021-01-12 10:20] VITALS: BP 155/95
== END 2021-01-12 10:20 | disposition home or self-care (01) ==
LOC: M INFU 09:11
PROVIDERS: ATTEND Internal Medicine Gastroenterology
DX: K50.90 Crohn's disease, unspecified, without complications (principal)
CPT/HCPCS: 96365; J3380

== ENCOUNTER 2021-03-09 08:32 | Outpatient (CLI) | payer OTHER ==
[~2021-03-09] VITALS: Ht 175.3 cm; Wt 86.3 kg
[2021-03-09] MEDS: VEDOLIZUMAB 300 MG in NS 250 ML IV ONE ×2 (08:20→10:15)
[~2021-03-09 08:32] MED LIST changes: -VEDOLIZUMAB 300 MG in NS 250 ML IV ONE
[2021-03-09 08:53] VITALS: BP 126/79
[2021-03-09] MEDS ORDERED: TUME1CAP PO (09:06)
[2021-03-09] MEDS ORDERED: D3 +TAB PO (09:06)
[2021-03-09 09:55] VITALS: BP 124/68
== END 2021-03-09 10:05 | disposition home or self-care (01) ==
LOC: M INFU 08:32
PROVIDERS: ATTEND Internal Medicine Gastroenterology
DX: K50.90 Crohn's disease, unspecified, without complications (principal); Z88.8 Allergy status to other drugs, medicaments and biological substances
CPT/HCPCS: 96365; J3380

== ENCOUNTER 2021-05-04 08:45 | Outpatient (CLI) | payer OTHER ==
[~2021-05-04] VITALS: Ht 175.3 cm; Wt 84.0 kg
[~2021-05-04 08:45] MED LIST changes: +D3 +TAB PO; +TUME1CAP PO; +VEDOLIZUMAB 300 MG in NS 250 ML IV ONE
[2021-05-04 09:00] VITALS: BP 120/76
[2021-05-04 09:39] VITALS: BP 120/76
[2021-05-04 09:55] VITALS: BP 109/68
== END 2021-05-04 09:55 | disposition home or self-care (01) ==
LOC: M INFU 08:45
PROVIDERS: ATTEND Internal Medicine Gastroenterology
DX: K50.90 Crohn's disease, unspecified, without complications (principal); Z88.8 Allergy status to other drugs, medicaments and biological substances
CPT/HCPCS: 96365; J3380

== ENCOUNTER → 2021-06-22 | Outpatient (CLI) | payer OTHER ==
[~2021-06-22] MED LIST changes: -VEDOLIZUMAB 300 MG in NS 250 ML IV ONE
[2021-06-22 12:28] LABS: BASO % 0.9 % (0.0-1.0); EOS # 0.1 10^3/uL (0.0-0.5); EOS % 1.1 % (0.0-3.0); HEMATOCRIT 48.3 % (42.0-52.0); HEMOGLOBIN 16.1 g/dl (13.5-17.5); LYMPH # 1.7 10^3/uL (1.5-5.0); LYMPH % 38.4 % (24.0-44.0); MEAN CORPUSCULAR HEMOGLOBIN 29.2 pg (27.0-33.0); MEAN CORPUSCULAR HGB CONC 33.3 g/dl (32.0-36.5); MEAN CORPUSCULAR VOLUME 87.5 fl (80.0-96.0); MONO # 0.9 10^3/uL (0.0-0.8); MONO % 20.2 % (2.0-8.0); NEUTROPHILS # 1.8 10^3/uL (1.5-8.5); NEUTROPHILS % 39.2 % (36.0-66.0); PLATELET COUNT, AUTOMATED 202 10^3/uL (150-450); RED BLOOD COUNT 5.52 10^6/uL (4.30-6.10); WHITE BLOOD COUNT 4.5 10^3/uL (4.0-10.0)
[2021-06-22 13:23] LABS: ERYTHROCYTE SEDIMENTATION RATE 4 mm/hr (0-15)
[2021-06-22 13:37] LABS: ALBUMIN 3.6 GM/DL (3.2-5.2); ALT/SGPT 52 U/L (12-78); BILIRUBIN,DIRECT 0.1 MG/DL (0.0-0.2); BILIRUBIN,TOTAL 0.2 MG/DL (0.2-1.0); BLOOD UREA NITROGEN 9 MG/DL (7-18); C REACTIVE PROTEIN QUANTITATIV < 0.30 MG/DL (0.00-0.30); GLOMERULAR FILTRATION RATE > 60.0 (>60); TOTAL PROTEIN 6.9 GM/DL (6.4-8.2)
== END ==
LOC: M LAB 11:23
PROVIDERS: ATTEND Internal Medicine Gastroenterology
DX: K50.80 Crohn's disease of both small and large intestine without complications (principal); L73.2 Hidradenitis suppurativa

== ENCOUNTER → 2021-09-28 | Outpatient (CLI) | payer OTHER ==
[~2021-09-28] MED LIST changes: -AZAT50TA2 PO; +AZAT50TA37 PO
[2021-09-28 11:11] LABS: BASO % 0.3 % (0.0-1.0); EOS # 0.1 10^3/uL (0.0-0.5); EOS % 1.2 % (0.0-3.0); HEMOGLOBIN 15.5 g/dl (13.5-17.5); LYMPH # 2.6 10^3/uL (1.5-5.0); LYMPH % 28.6 % (24.0-44.0); MEAN CORPUSCULAR HEMOGLOBIN 29.9 pg (27.0-33.0); MEAN CORPUSCULAR HGB CONC 33.7 g/dl (32.0-36.5); MEAN CORPUSCULAR VOLUME 88.6 fl (80.0-96.0); MONO # 0.9 10^3/uL (0.0-0.8); MONO % 9.9 % (2.0-8.0); NEUTROPHILS # 5.5 10^3/uL (1.5-8.5); NEUTROPHILS % 59.8 % (36.0-66.0); PLATELET COUNT, AUTOMATED 258 10^3/uL (150-450); RED BLOOD COUNT 5.19 10^6/uL (4.30-6.10); WHITE BLOOD COUNT 9.2 10^3/uL (4.0-10.0)
[2021-09-28 11:45] LABS: ERYTHROCYTE SEDIMENTATION RATE 26 mm/hr (0-15)
[2021-09-28 12:00] LABS: ALBUMIN 3.5 GM/DL (3.2-5.2); ALT/SGPT 33 U/L (12-78); BILIRUBIN,DIRECT 0.1 MG/DL (0.0-0.2); BILIRUBIN,TOTAL 0.8 MG/DL (0.2-1.0); BLOOD UREA NITROGEN 11 MG/DL (7-18); CREATININE FOR GFR 0.91 MG/DL (0.70-1.30); GLOMERULAR FILTRATION RATE > 60.0 (>60); TOTAL PROTEIN 6.9 GM/DL (6.4-8.2)
[2021-10-05 08:07] LABS: ADALIMUMAB LEVEL 5.7 ug/mL (.); ANTI-ADALIMUMAB ABY 46 ng/mL (.)
== END ==
LOC: M LAB 09:45
PROVIDERS: ATTEND Internal Medicine Gastroenterology
DX: K50.80 Crohn's disease of both small and large intestine without complications (principal)

== ENCOUNTER → 2021-10-08 | Outpatient (CLI) | payer OTHER ==
[2021-10-08 13:37] LABS: BASO # 0.1 10^3/uL (0.0-0.2); BASO % 0.4 % (0.0-1.0); EOS # 0.1 10^3/uL (0.0-0.5); EOS % 0.8 % (0.0-3.0); HEMATOCRIT 45.2 % (42.0-52.0); HEMOGLOBIN 15.5 g/dl (13.5-17.5); LYMPH % 21.7 % (24.0-44.0); MEAN CORPUSCULAR HEMOGLOBIN 29.6 pg (27.0-33.0); MEAN CORPUSCULAR HGB CONC 34.3 g/dl (32.0-36.5); MEAN CORPUSCULAR VOLUME 86.4 fl (80.0-96.0); MONO % 7.1 % (2.0-8.0); NEUTROPHILS # 9.7 10^3/uL (1.5-8.5); NEUTROPHILS % 69.5 % (36.0-66.0); PLATELET COUNT, AUTOMATED 272 10^3/uL (150-450); RED BLOOD COUNT 5.23 10^6/uL (4.30-6.10); WHITE BLOOD COUNT 13.9 10^3/uL (4.0-10.0)
[2021-10-08 14:16] LABS: ALBUMIN 3.8 GM/DL (3.2-5.2); ALT/SGPT 40 U/L (12-78); BILIRUBIN,TOTAL 0.3 MG/DL (0.2-1.0); BLOOD UREA NITROGEN 11 MG/DL (7-18); CALCIUM LEVEL 9.6 MG/DL (8.5-10.1); CARBON DIOXIDE LEVEL 26 MEQ/L (21-32); CHLORIDE LEVEL 108 MEQ/L (98-107); CREATININE FOR GFR 0.94 MG/DL (0.70-1.30); GLOMERULAR FILTRATION RATE > 60.0 (>60); GLUCOSE, FASTING 84 MG/DL (70-100); POTASSIUM SERUM 4.6 MEQ/L (3.5-5.1); SODIUM LEVEL 138 MEQ/L (136-145); TOTAL PROTEIN 7.4 GM/DL (6.4-8.2)
== END ==
LOC: M LAB 12:49
PROVIDERS: ATTEND Nurse Practitioner Family
DX: L40.0 Psoriasis vulgaris (principal); Z51.81 Encounter for therapeutic drug level monitoring; Z79.899 Other long term (current) drug therapy

== ENCOUNTER 2021-10-28 16:53 | Emergency (ER) | payer OTHER ==
[~2021-10-28] VITALS: Ht 175.3 cm; Wt 98.7 kg
[2021-10-28 16:54] VITALS: BP 140/77
[2021-10-28] MEDS ORDERED: FOLI1TAB11 (17:02)
[2021-10-28] MEDS ORDERED: METH2.5T48 (17:02)
[2021-10-28] MEDS ORDERED: ADAL80PE4 (17:02)
[2021-10-28 17:38] LABS: HEMATOCRIT 46.6 % (42.0-52.0); HEMOGLOBIN 15.6 g/dl (13.5-17.5); MEAN CORPUSCULAR HEMOGLOBIN 29.5 pg (27.0-33.0); MEAN CORPUSCULAR HGB CONC 33.5 g/dl (32.0-36.5); MEAN CORPUSCULAR VOLUME 88.3 fl (80.0-96.0); PLATELET COUNT, AUTOMATED 264 10^3/uL (150-450); RED BLOOD COUNT 5.28 10^6/uL (4.30-6.10); WHITE BLOOD COUNT 11.3 10^3/uL (4.0-10.0)
[2021-10-28 18:06] LABS: BLOOD UREA NITROGEN 11 MG/DL (7-18); CALCIUM LEVEL 9.1 MG/DL (8.5-10.1); CARBON DIOXIDE LEVEL 24 MEQ/L (21-32); CHLORIDE LEVEL 110 MEQ/L (98-107); GLOMERULAR FILTRATION RATE > 60.0 (>60); GLUCOSE, FASTING 80 MG/DL (70-100); MAGNESIUM LEVEL 2.2 MG/DL (1.8-2.4); POTASSIUM SERUM 4.1 MEQ/L (3.5-5.1); SODIUM LEVEL 139 MEQ/L (136-145)
[2021-10-28 18:12] LABS: LYMPHOCYTES 31 % (16-44); MONOCYTES 6 % (0-5); NEUTROPHILS 63 % (28-66)
[2021-10-28 18:13] LABS: PLATELET ESTIMATE NORMAL (NORMAL)
== END 2021-10-28 18:28 | disposition home or self-care (01) ==
LOC: M ED 16:53
DX: R79.9 Abnormal finding of blood chemistry, unspecified (principal); R01.1 Cardiac murmur, unspecified; K50.90 Crohn's disease, unspecified, without complications; F17.200 Nicotine dependence, unspecified, uncomplicated; Z79.899 Other long term (current) drug therapy; Z88.8 Allergy status to other drugs, medicaments and biological substances; Z87.442 Personal history of urinary calculi; Z87.19 Personal history of other diseases of the digestive system; Z90.49 Acquired absence of other specified parts of digestive tract; Z98.890 Other specified postprocedural states

== ENCOUNTER 2022-02-03 14:23 | Emergency (ER) | payer OTHER, BC ==
[~2022-02-03] VITALS: Ht 175.3 cm; Wt 96.3 kg
[~2022-02-03 14:23] MED LIST changes: +ADAL80PE4; +FOLI1TAB11; +METH2.5T48
[2022-02-03 14:25] VITALS: BP 160/96
== END 2022-02-03 18:05 | disposition home or self-care (01) ==
LOC: M ED 14:23
DX: K42.9 Umbilical hernia without obstruction or gangrene (principal); K40.20 Bilateral inguinal hernia, without obstruction or gangrene, not specified as recurrent; X50.0XXA Overexertion from strenuous movement or load, initial encounter; Y92.89 Other specified places as the place of occurrence of the external cause; Y99.0 Civilian activity done for income or pay; R01.1 Cardiac murmur, unspecified; K50.90 Crohn's disease, unspecified, without complications; Z87.442 Personal history of urinary calculi; F17.200 Nicotine dependence, unspecified, uncomplicated; Z87.19 Personal history of other diseases of the digestive system; Z79.899 Other long term (current) drug therapy; Z88.8 Allergy status to other drugs, medicaments and biological substances

== ENCOUNTER → 2022-05-05 | Outpatient (CLI) | payer BC, OTHER | LOC: M LABSMTC 09:33 | PROVIDERS: ATTEND Anesthesiology | DX: Z01.812 Encounter for preprocedural laboratory examination (principal); Z11.52 Encounter for screening for COVID-19 ==

== ENCOUNTER 2022-05-10 06:17 | Day surgery (SDC) | payer OTHER ==
[~2022-05-10] VITALS: Ht 175.3 cm; Wt 90.7 kg
[~2022-05-10 06:17] MED LIST changes: +ceFAZolin SOD 2 GM in IV 1 EA IV ONE
[2022-05-10] MEDS ORDERED: LR 1,000 ML IV SCH ×2 (06:55→10:05)
[2022-05-10] MEDS ORDERED: MIDAZOLAM INJ 2MG/2ML VIAL (J2250 PER 1MG) As Ordered ONE (07:14)
[2022-05-10] MEDS ORDERED: fentaNYL 100 MCG/2 ML INJECTION As Ordered ONE (07:14)
[2022-05-10] MEDS ORDERED: ROCURONIUM BROMIDE 50 MG/5 ML VIAL As Ordered ONE ×2 (07:14→07:52)
[2022-05-10] MEDS ORDERED: SUGAMMADEX SODIUM 500 MG/5 ML VIAL (BRIDION) As Ordered ONE (07:14)
[2022-05-10] MEDS ORDERED: propofoL 200 MG/20 ML VIAL As Ordered ONE ×2 (07:14→07:41)
[2022-05-10] MEDS ORDERED: LIDOCAINE 2% 100MG/5ML SDV (FOR ANES.) As Ordered ONE (07:14)
[2022-05-10] MEDS ORDERED: ONDANSETRON 4MG 2ML VIAL As Ordered ONE (07:15)
[2022-05-10] MEDS ORDERED: BUPIVACAINE/EPIN 0.25% 30ML VIAL As Ordered ONE (07:16)
[2022-05-10] MEDS ORDERED: ACETAMINOPHEN 1000MG 100ML IV BAG As Ordered ONE (07:51)
[2022-05-10] MEDS ORDERED: KETOROLAC 60MG 2ML VIAL As Ordered ONE (08:34)
[2022-05-10] MEDS ORDERED: HYDROmorphone HCL 2MG/ML 1ML VIAL As Ordered ONE (09:53)
[2022-05-10] MEDS ORDERED: fentaNYL 100 MCG/2 ML INJECTION IV PRN (10:05)
[2022-05-10] MEDS ORDERED: ONDANSETRON 4MG 2ML VIAL IV PRN (10:05)
[2022-05-10] MEDS: HYDROMORPHONE HCL 0.5 MG/ 0.5 ML SYRINGE (J1170 PER 1) IV PRN ×4 (10:26→11:00)
[2022-05-10] MEDS: oxyCODONE 5MG TAB PO PRN ×2 (10:27→11:00)
[2022-05-10 11:48] VITALS: BP 100/56
[2022-05-10] MEDS ORDERED: NORCO, ANEXSIA 5/325MG TABLET (HYDROcodone/ACETAMINOPHEN) PO PRN (13:35)
== END 2022-05-10 12:50 | disposition home or self-care (01) ==
LOC: M SDC 06:17
PROVIDERS: ATTEND Surgery
DX: K40.00 Bilateral inguinal hernia, with obstruction, without gangrene, not specified as recurrent (principal); K50.90 Crohn's disease, unspecified, without complications; Z88.8 Allergy status to other drugs, medicaments and biological substances; G43.909 Migraine, unspecified, not intractable, without status migrainosus; F17.210 Nicotine dependence, cigarettes, uncomplicated; Z79.899 Other long term (current) drug therapy
CPT/HCPCS: 49650; 88304; C1781; J0131; J0690; J1100; J1170; J1885; J2250; J2405; J3010; S2900

== ENCOUNTER → 2023-10-26 | Outpatient (CLI) | payer BC ==
[~2023-10-26] MED LIST changes: -ceFAZolin SOD 2 GM in IV 1 EA IV ONE
[2023-10-26 11:10] LABS: BASO # 0.1 10^3/uL (0.0-0.2); BASO % 0.6 % (0.0-1.0); EOS # 0.3 10^3/uL (0.0-0.5); EOS % 2.4 % (0.0-3.0); HEMATOCRIT 47.7 % (42.0-52.0); HEMOGLOBIN 15.6 g/dl (13.5-17.5); LYMPH # 3.6 10^3/uL (1.5-5.0); LYMPH % 29.9 % (24.0-44.0); MEAN CORPUSCULAR HEMOGLOBIN 28.7 pg (27.0-33.0); MEAN CORPUSCULAR HGB CONC 32.7 g/dl (32.0-36.5); MEAN CORPUSCULAR VOLUME 87.8 fl (80.0-96.0); MONO # 0.9 10^3/uL (0.0-0.8); MONO % 7.6 % (2.0-8.0); NEUTROPHILS % 59.1 % (36.0-66.0); PLATELET COUNT, AUTOMATED 373 10^3/uL (150-450); RED BLOOD COUNT 5.43 10^6/uL (4.30-6.10); WHITE BLOOD COUNT 11.9 10^3/uL (4.0-10.0)
[2023-10-26 11:15] LABS: ERYTHROCYTE SEDIMENTATION RATE 56 mm/hr (0-15)
[2023-10-26 11:42] LABS: ALBUMIN 3.4 G/DL (3.2-5.2); ALKALINE PHOSPHATASE 125 U/L (46-116); ALT/SGPT 36 U/L (7.0-40); AST/SGOT 20 U/L (<34); BILIRUBIN,DIRECT < 0.1 MG/DL (<0.4); BILIRUBIN,TOTAL 0.2 MG/DL (0.3-1.2); BLOOD UREA NITROGEN 14 MG/DL (9-23); CREATININE FOR GFR 0.77 MG/DL (0.70-1.30); GLOMERULAR FILTRATION RATE > 60.0 (>60); TOTAL PROTEIN 7.5 G/DL (5.7-8.2)
== END ==
LOC: M LAB 10:17
PROVIDERS: ATTEND Internal Medicine Gastroenterology
DX: K50.813 Crohn's disease of both small and large intestine with fistula (principal)

== ENCOUNTER 2024-02-14 13:47 | Emergency (ER) | payer BC ==
[~2024-02-14] VITALS: Ht 172.7 cm; Wt 91.2 kg
[2024-02-14] MEDS ORDERED: DOXY100C3 (13:57)
[2024-02-14] MEDS ORDERED: CLIN1GEL19 (13:57)
[2024-02-14 16:52] LABS: BASO % 0.3 % (0.0-1.0); EOS # 0.2 10^3/uL (0.0-0.5); EOS % 1.1 % (0.0-3.0); HEMATOCRIT 43.5 % (42.0-52.0); HEMOGLOBIN 14.3 g/dl (13.5-17.5); LYMPH # 3.3 10^3/uL (1.5-5.0); MEAN CORPUSCULAR HEMOGLOBIN 28.5 pg (27.0-33.0); MEAN CORPUSCULAR HGB CONC 32.9 g/dl (32.0-36.5); MEAN CORPUSCULAR VOLUME 86.8 fl (80.0-96.0); MONO # 0.8 10^3/uL (0.0-0.8); MONO % 5.6 % (2.0-8.0); NEUTROPHILS # 9.8 10^3/uL (1.5-8.5); NEUTROPHILS % 69.2 % (36.0-66.0); PLATELET COUNT, AUTOMATED 328 10^3/uL (150-450); RED BLOOD COUNT 5.01 10^6/uL (4.30-6.10); WHITE BLOOD COUNT 14.1 10^3/uL (4.0-10.0)
[2024-02-14 17:18] LABS: BLOOD UREA NITROGEN 11 MG/DL (9-23); CALCIUM LEVEL 9.5 MG/DL (8.5-10.1); CARBON DIOXIDE LEVEL 25 MMOL/L (20-31); CHLORIDE LEVEL 111 MMOL/L (98-107); CREATININE FOR GFR 0.71 MG/DL (0.70-1.30); GLOMERULAR FILTRATION RATE > 60.0 (>60); GLUCOSE, FASTING 83 MG/DL (60-100); POTASSIUM SERUM 4.2 MMOL/L (3.5-5.1); SODIUM LEVEL 140 MMOL/L (136-145)
[2024-02-14 18:33] VITALS: BP 115/63; TEMP 97.9; O2SAT 97
== END 2024-02-14 18:34 | disposition home or self-care (01) ==
LOC: M ED 13:47
DX: L73.2 Hidradenitis suppurativa (principal); F17.200 Nicotine dependence, unspecified, uncomplicated; Z79.2 Long term (current) use of antibiotics; Z79.899 Other long term (current) drug therapy; Z88.8 Allergy status to other drugs, medicaments and biological substances

== ENCOUNTER 2024-04-12 08:31 | Emergency (ER) | payer BC ==
[~2024-04-12] VITALS: Ht 172.7 cm; Wt 86.4 kg
[~2024-04-12 08:31] MED LIST changes: +CLIN1GEL19; +DOXY100C3
[2024-04-12] MEDS ORDERED: HUMI40IN2 SQ (08:42)
[2024-04-12] MEDS: FLUORESCEIN OPHTH 1MG STRIP OS ONE (11:15)
[2024-04-12] MEDS: TETRACAINE 0.5% OPHTH SOLN 4ML OS ONE (11:15)
[2024-04-12] MEDS: BOOSTRIX VACCINE (TETANUS/DIPHTH/ACEL. PERTUSSIS) 0.5ML SYR IM ONE (11:48)
[2024-04-12] MEDS ORDERED: ERYT5OIN25 OS (12:06)
[2024-04-12] MEDS ORDERED: AMOX875T2 PO (12:06)
[2024-04-12 12:13] VITALS: BP 121/72; TEMP 97.8; O2SAT 96
== END 2024-04-12 12:14 | disposition home or self-care (01) ==
LOC: M ED 08:31
DX: T15.02XA Foreign body in cornea, left eye, initial encounter (principal); H57.12 Ocular pain, left eye; K50.90 Crohn's disease, unspecified, without complications; F17.200 Nicotine dependence, unspecified, uncomplicated; Z87.442 Personal history of urinary calculi; Z88.8 Allergy status to other drugs, medicaments and biological substances; Z79.2 Long term (current) use of antibiotics; Z79.899 Other long term (current) drug therapy; Z23 Encounter for immunization

== ENCOUNTER → 2024-05-07 | Outpatient (CLI) | payer BC ==
[~2024-05-07] MED LIST changes: +AMOX875T2 PO; +ERYT5OIN25 OS; +HUMI40IN2 SQ
[2024-05-07 09:43] LABS: HEMATOCRIT 46.1 % (42.0-52.0); MEAN CORPUSCULAR HGB CONC 32.5 g/dl (32.0-36.5); MEAN CORPUSCULAR VOLUME 89.2 fl (80.0-96.0); PLATELET COUNT, AUTOMATED 321 10^3/uL (150-450); RED BLOOD COUNT 5.17 10^6/uL (4.30-6.10); WHITE BLOOD COUNT 8.6 10^3/uL (4.0-10.0)
[2024-05-07 09:53] LABS: ERYTHROCYTE SEDIMENTATION RATE 52 mm/hr (0-15)
[2024-05-07 10:07] LABS: ALKALINE PHOSPHATASE 101 U/L (40-129); ALT/SGPT 33 U/L (7.0-40); AST/SGOT 24 U/L (<34); BILIRUBIN,TOTAL 0.2 MG/DL (0.3-1.2); BLOOD UREA NITROGEN 11 MG/DL (9-23); CALCIUM LEVEL 9.6 MG/DL (8.5-10.1); CARBON DIOXIDE LEVEL 25 MMOL/L (20-31); CHLORIDE LEVEL 110 MMOL/L (98-107); CREATININE FOR GFR 0.79 MG/DL (0.70-1.30); GLOMERULAR FILTRATION RATE > 60.0 (>60); GLUCOSE, FASTING 85 MG/DL (60-100); POTASSIUM SERUM 4.5 MMOL/L (3.5-5.1); SODIUM LEVEL 141 MMOL/L (136-145)
[2024-05-09 11:32] LABS: QuantiFERON-TB Gold Plus NEGATIVE (NEGATIVE)
== END ==
LOC: M LAB 08:23
PROVIDERS: ATTEND Internal Medicine Gastroenterology
DX: K50.00 Crohn's disease of small intestine without complications (principal); L73.2 Hidradenitis suppurativa; R10.84 Generalized abdominal pain; K59.1 Functional diarrhea

== ENCOUNTER → 2024-05-09 | Outpatient (REF) | payer BC | LOC: M LAB REF 10:28 | PROVIDERS: ATTEND Internal Medicine Gastroenterology | DX: K50.00 Crohn's disease of small intestine without complications (principal); R10.84 Generalized abdominal pain; K59.1 Functional diarrhea; L73.2 Hidradenitis suppurativa ==

== ENCOUNTER 2024-08-13 08:39 | Outpatient (CLI) | payer BC ==
[~2024-08-13] VITALS: Ht 175.3 cm; Wt 90.9 kg
[~2024-08-13 08:39] MED LIST changes: +NS (Normal Saline) 0.9% 1,000 ML IV SCH
[2024-08-13 08:45] VITALS: BP 127/82; O2SAT 98
[2024-08-13] MEDS: ACETAMINOPHEN 650MG PO PRIOR TO INFUSION PO ONE (08:55)
[2024-08-13] MEDS: inFLIXimab INJECTION 500 MG in NS 200 ML IV ONE (09:36)
[2024-08-13 10:00] VITALS: BP 108/63; O2SAT 97
[2024-08-13 10:30] VITALS: BP 118/69; O2SAT 100
[2024-08-13 11:00] VITALS: BP 118/65; O2SAT 97
[2024-08-13 12:45] VITALS: BP 125/73; O2SAT 98
== END 2024-08-13 12:45 ==
LOC: M INFU 08:39
PROVIDERS: ATTEND Internal Medicine Gastroenterology
DX: K50.90 Crohn's disease, unspecified, without complications (principal); Z88.8 Allergy status to other drugs, medicaments and biological substances

== ENCOUNTER 2024-08-27 08:30 | Outpatient (CLI) | payer BC ==
[~2024-08-27] VITALS: Ht 175.3 cm; Wt 90.9 kg
[2024-08-27 08:30] VITALS: BP 126/78; O2SAT 99
[2024-08-27] MEDS: inFLIXimab INJECTION 500 MG in NS 200 ML IV ONE (09:22)
[2024-08-27] MEDS: ACETAMINOPHEN 650MG PO PRIOR TO INFUSION PO ONE (09:25)
[2024-08-27 09:45] VITALS: BP 111/58; O2SAT 97
[2024-08-27 10:15] VITALS: BP 120/64; O2SAT 99
[2024-08-27 10:45] VITALS: BP_SYST 58; O2SAT 97
[2024-08-27 11:28] VITALS: BP 127/78; O2SAT 97
== END 2024-08-27 11:30 ==
LOC: M INFU 08:30
PROVIDERS: ATTEND Internal Medicine Gastroenterology
DX: K50.90 Crohn's disease, unspecified, without complications (principal); Z88.8 Allergy status to other drugs, medicaments and biological substances

== ENCOUNTER → 2025-02-19 | Outpatient (CLI) | payer OTHER ==
[~2025-02-19] MED LIST changes: -NS (Normal Saline) 0.9% 1,000 ML IV SCH
[2025-02-19 11:15] LABS: PLATELET COUNT, AUTOMATED 399 10^3/uL (150-450)
[2025-02-19 11:20] LABS: ERYTHROCYTE SEDIMENTATION RATE 125 mm/hr (0-15)
[2025-02-19 11:55] LABS: ALT/SGPT 58 U/L (7.0-40); AST/SGOT 31 U/L (<34); C REACTIVE PROTEIN QUANTITATIV 4.41 MG/DL (<1.0); CALCIUM LEVEL 9.1 MG/DL (8.5-10.1); CARBON DIOXIDE LEVEL 23 MMOL/L (20-31); CHLORIDE LEVEL 107 MMOL/L (98-107); CREATININE FOR GFR 0.71 MG/DL (0.70-1.30); GLOMERULAR FILTRATION RATE > 90.0 (>60); POTASSIUM SERUM 4.4 MMOL/L (3.5-5.1); SODIUM LEVEL 137 MMOL/L (136-145)
== END ==
LOC: M LAB 10:19
PROVIDERS: ATTEND Internal Medicine Gastroenterology
DX: K50.00 Crohn's disease of small intestine without complications (principal); L73.2 Hidradenitis suppurativa; K59.1 Functional diarrhea

== ENCOUNTER 2025-04-12 07:36 | Outpatient (CLI) | payer OTHER ==
[~2025-04-12] VITALS: Ht 172.7 cm; Wt 89.5 kg
[~2025-04-12 07:36] MED LIST changes: +NS (Normal Saline) 0.9% 1,000 ML IV SCH
[2025-04-12 08:00] VITALS: BP 123/74; O2SAT 96
[2025-04-12] MEDS ORDERED: NS (Normal Saline) 0.9% 1,000 ML IV SCH (08:30)
[2025-04-12] MEDS: ACETAMINOPHEN 650 MG PO ONE (08:35)
[2025-04-12] MEDS: INFLIXIMAB BIOSIMILAR 500 MG in NS 200 ML IV ONE (08:36)
[2025-04-12 09:26] VITALS: BP 115/63; O2SAT 97
[2025-04-12 10:06] VITALS: BP 106/65; O2SAT 97
[2025-04-12 10:50] VITALS: BP 135/87; O2SAT 99
== END 2025-04-12 10:40 | disposition home or self-care (01) ==
LOC: M INFU 07:36
DX: K50.90 Crohn's disease, unspecified, without complications (principal); Z88.8 Allergy status to other drugs, medicaments and biological substances
CPT/HCPCS: 96413; 96415; Q5103

== ENCOUNTER 2025-04-30 07:14 | Outpatient (CLI) | payer OTHER ==
[~2025-04-30] VITALS: Ht 172.7 cm; Wt 91.0 kg
[~2025-04-30 07:14] MED LIST changes: +ALBUTEROL SULFATE 2.5 MG/0.5 ML INH CONCENTRATE NEB SOLN INH PRN; +EPINEPHrine INJ 1 MG/ML 1ML AMP IM PRN; -NS (Normal Saline) 0.9% 1,000 ML IV SCH; +diphenhydrAMINE 50 MG/ML VIAL IV PRN
[2025-04-30 07:30] VITALS: BP 123/67; TEMP 98.7; O2SAT 98
[2025-04-30] MEDS ORDERED: NS (Normal Saline) 0.9% 1,000 ML IV SCH (08:00)
[2025-04-30] MEDS: INFLIXIMAB BIOSIMILAR 500 MG in NS 200 ML IV ONE (08:21)
[2025-04-30 08:35] VITALS: BP 118/80; TEMP 98.5; O2SAT 99
[2025-04-30 08:50] VITALS: BP 105/70; TEMP 98.7; O2SAT 99
[2025-04-30 09:30] VITALS: BP 133/84; O2SAT 97
[2025-04-30 10:00] VITALS: BP 121/76; O2SAT 98
== END 2025-04-30 10:26 | disposition home or self-care (01) ==
LOC: M INFU 07:14
DX: K50.90 Crohn's disease, unspecified, without complications (principal); Z88.8 Allergy status to other drugs, medicaments and biological substances
CPT/HCPCS: 96413; 96415; Q5103

== ENCOUNTER 2025-05-29 11:29 | Outpatient (CLI) | payer OTHER ==
[~2025-05-29] VITALS: Ht 177.8 cm; Wt 90.9 kg
[~2025-05-29 11:29] MED LIST changes: -ALBUTEROL SULFATE 2.5 MG/0.5 ML INH CONCENTRATE NEB SOLN INH PRN; -EPINEPHrine INJ 1 MG/ML 1ML AMP IM PRN; -diphenhydrAMINE 50 MG/ML VIAL IV PRN
[2025-05-29] MEDS ORDERED: diphenhydrAMINE 25MG PO PRIOR TO INFUSION PO ONE (11:30)
[2025-05-29] MEDS ORDERED: NS (Normal Saline) 0.9% 1,000 ML IV SCH (11:30)
[2025-05-29] MEDS ORDERED: ACETAMINOPHEN 650MG PO PRIOR TO INFUSION PO ONE (11:30)
[2025-05-29] MEDS: INFLIXIMAB BIOSIMILAR 500 MG in NS 200 ML IV ONE (12:39)
[2025-05-29 13:45] VITALS: BP 126/84; O2SAT 99
== END 2025-05-29 13:45 | disposition home or self-care (01) ==
LOC: M INFU 11:29
DX: K50.90 Crohn's disease, unspecified, without complications (principal); Z88.8 Allergy status to other drugs, medicaments and biological substances
CPT/HCPCS: 96413; Q5103